=== PATIENT | male | born 1975 | race Caucasian/White ===

== ENCOUNTER 2017-07-13 18:01 | Emergency (ER) | payer OTHER ==
[~2017-07-13] VITALS: Ht 175.3 cm; Wt 94.7 kg
[2017-07-13 19:44] LABS: HEMATOCRIT 49.7 % (38.0-50.0); HEMOGLOBIN 17.8 G/DL (12.5-16.6); MCH 32.5 PG (29.0-34.0); MCHC 35.8 G/DL (30.0-36.0); MCV 90.9 FL (86-99); PLATELET COUNT 186 K/uL (156-360); RBC DIS.WIDTH-CV 12.3 % (11.8-14.6); RBC DIS.WIDTH-SD 41.3 % (39-53); RED BLOOD COUNT 5.47 M/uL (4.00-5.50); WHITE BLOOD COUNT 8.8 K/uL (4.1-10.2)
[2017-07-13 19:56] LABS: CHLORIDE 100 mEq/L (99-109); POTASSIUM 4.5 mEq/L (3.7-5.4); SODIUM 137 mEq/L (136-147)
[2017-07-13 19:58] LABS: GLUCOSE 120 mg/dL (70-99)
[2017-07-13 20:02] LABS: GFR ESTIMATE (CALCULATED) > 59 mL/min/ (58.99-99999)
[2017-07-13 20:03] LABS: UREA NITROGEN (BUN) 16 mg/dL (9-23)
[2017-07-14] MEDS ORDERED: HYDROCHLOROTHIA25 MG PO (00:35)
[2017-07-14 00:41] VITALS: BP 149/97
== END 2017-07-14 00:43 | disposition home or self-care (01) ==
LOC: EME 18:01
DX: R03.0 Elevated blood-pressure reading, without diagnosis of hypertension (principal); R20.2 Paresthesia of skin; F17.200 Nicotine dependence, unspecified, uncomplicated
CPT/HCPCS: 70450; 71046; 80048; 85027; 93005; 99281; 99285